=== PATIENT | male | born 1965 | race African-American/Black ===

== ENCOUNTER → 2017-02-18 | Outpatient (CLI) | payer OTHER ==
--- NOTE | ~2017-02-18 | MR113 ---
[facility] RADIOLOGY TEXT RESULTS PATIENT: MONTY SALGADO LOCATION: [facility] : 69 UNIT #: [id number] AGE: [address]: Shayan Fisher MD SEX: M ORDER DR: [id number] [address] [id number] O MR#: [id number] Acc #: [id number] NAME: MONTY SALGADO : 1965 SEX: M STUDY DATE/TIME: 02/18/2017 10:54 UNIT: [facility] ROOM: STUDY DESCRIPTION: MR Lumbar Wo Contrast Attending Physician: Shayan Fisher M.D. Referring Physician: Shayan Fisher M.D. Ordering Physician: Shayan Fisher M.D. Primary Care Physician: Donis Moody M.D. [facility]ENTER REPORT This report is preliminary unless electronic signature is present. EXAM MRI of the lumbar spine without contrast dated 02/18/2017. COMPARISON STUDIES CT lumbar spine without contrast dated 12/19/2016. HISTORY Increased low-back pain with left lower extremity radiculopathy for the last 2.5 months. History of weakness and falls. FINDINGS Multisequence, multiplanar imaging of the lumbar spine was obtained without contrast. Vertebral body heights and alignment are preserved. Minimal edematous endplate changes are noted along the anteroinferior aspect of L5 vertebral body. Conus terminates at inferior L1 close to L1-2 disc level. Signal of the conus and cauda equina are within normal limits. Pre and paravertebral soft tissues are unremarkable. L1-2: Unremarkable. L2-3, L3-4, mild disc bulge with minimal bilateral inferior neural foraminal encroachment without nerve impingement. No canal stenosis. L4-5: Concentric disc bulge with mild inferior bilateral neural foraminal narrowing and borderline-sized canal. L5-S1: Minimal disc bulge without canal stenosis or neural foraminal narrowing. IMPRESSION [facility] RADIOLOGY TEXT RESULTS PATIENT: MONTY SALGADO LOCATION: [facility] : 69 UNIT #: [id number] AGE: [address]: Shayan Fisher MD SEX: M ORDER DR: Minimal disc bulges are noted in the lumbar spine, slightly prominent at L4-5 with mild inferior bilateral neural foraminal encroachment and borderline-sized canal. Dictated by... Ruthie Muhammad M.D. THIS IS AN ELECTRONICALLY VERIFIED REPORT Ruthie Muhammad M.D. at 02/21/2017 3:34 PM CPR/tmw TD: 02/20/2017 14:10 JOB #: [id number] MRI CENTER REPORT Page 1 of 1
== END | disposition home or self-care (01) ==
LOC: SMRI 09:55
DX: M51.26 Other intervertebral disc displacement, lumbar region (principal); M43.10 Spondylolisthesis, site unspecified; M51.86 Other intervertebral disc disorders, lumbar region
CPT/HCPCS: 72148